=== PATIENT | female | born 1985 | race Caucasian/White ===

== ENCOUNTER 2023-04-13 14:03 | Inpatient (IN) | payer OTHER, SELFPAY ==
[2023-04-13 14:13] VITALS: BP 120/64; BMI 29.9
[2023-04-13] MEDS: LR 1000 IV (14:20)
[2023-04-13 14:55] LABS: Hematocrit 31.2 % (37.0-47.0); Hemoglobin 10.6 g/dL (12.0-16.0); Mean Corpuscular Hgb 30.3 pg (27.0-31.0); Mean Corpuscular Volume 89.1 fL (81.0-99.0); Mean Platelet Volume 11.2 fL (7.4-10.4); Platelet Count 190 10^3/uL (130-400); Red Cell Dist. Width 13.3 % (11.5-14.5)
[2023-04-13] MEDS: TYLENOL 1000 MG PO (14:59)
[2023-04-13] MEDS: BICITRA 30 ML PO (15:01)
[2023-04-13] MEDS: ANCEF 10 IV (15:04)
[2023-04-13] MEDS: MORPHINE SULFATE 4 MG IV (18:15)
[2023-04-13] MEDS: ZOFRAN 4 MG IV (21:38)
[2023-04-13] MEDS: TORADOL 15 MG IV (21:38)
[2023-04-14] MEDS: TORADOL 15 MG IV ×3 (04:02→15:45)
[2023-04-14 05:06] LABS: Hematocrit 26.3 % (37.0-47.0); Hemoglobin 8.8 g/dL (12.0-16.0); Mean Corp Hgb Conc. 33.5 g/dL (33.0-37.0); Mean Corpuscular Hgb 30.6 pg (27.0-31.0); Mean Corpuscular Volume 91.3 fL (81.0-99.0); Mean Platelet Volume 11.6 fL (7.4-10.4); Platelet Count 165 10^3/uL (130-400); Red Blood Cell Count 2.88 10^6/uL (4.20-5.40); Red Cell Dist. Width 13.3 % (11.5-14.5); White Blood Cell Count 15.7 10^3/uL (4.8-10.8)
[2023-04-14] MEDS: BENADRYL 25 MG PO (05:48)
--- NOTE | 2023-04-14 07:40 | W.PN.ANS.POP ---
Anesthesia Post Operative
- Anesthesia Post Op Note
Vital Signs Stable-See Nursing Note: Yes
Airway Patent: Yes
Adequate Pain Control: Yes
Change in Mental Status: No
Current Postoperative Nausea & Vomiting: No
Anesthesia Complications: No (no back pain or headache)
General Anesthetic Recall: No
Unplanned Admission: No
Post Op Hydration Adequate: Yes
[2023-04-14] MEDS: FEOSOL 325 MG PO ×2 (08:28→20:26)
[2023-04-14] MEDS: TYLENOL 650 MG PO (22:27)
[2023-04-14] MEDS: MOTRIN 600 MG PO (22:27)
[2023-04-15] MEDS: TYLENOL 650 MG PO (05:36)
[2023-04-15] MEDS: MOTRIN 600 MG PO (05:37)
--- NOTE | 2023-04-15 08:21 | W.DS.TRANS ---
DC Summary - Medication Technician
-
Discharge Instructions:
Discharge Diagnosis/Procedures section
Instructions:
Stand-Alone Forms: LDRP Delivery
Changes to Home Medications: No
Discharge Medications:
DC Medications w/original date entered in [employer]
vitamin-ferrous fumarate 28 mg iron-folic acid 800 mcg tablet ( Tablet) 1 tab PO DAILY Supplement 04/13/23
acetaminophen 325 mg tablet 650 mg PO Q4HPRN PRN mild pain #0 tabs 04/15/23
ferrous sulfate 325 mg (65 mg iron) tablet (FeroSul) 325 mg PO DAILY #0 tabs 04/15/23
ibuprofen 600 mg tablet 600 mg PO Q6HPRN PRN cramps #45 tabs 04/15/23
sennosides 8.6 mg-docusate sodium 50 mg tablet (Stool Softener-Stimulant Laxative) 1 tab PO DAILYPRN PRN constipation #0 tabs 04/15/23
Home Medication Changes
Pending Results: No
[2023-04-15] MEDS: FEOSOL 325 MG PO (08:26)
[2023-04-15] MEDS: SENOKOT-S 1 TABLET PO (08:27)
[2023-04-18 16:20] LABS: Syphilis/T. pallidum Ab Reflex Negative (Negative)
== END 2023-04-15 12:00 | disposition home or self-care (01) | DRG 785 ==
LOC: LDRP 14:03
PROVIDERS: ADMITTING PHYSICIAN Obstetrics & Gynecology
PROC: 0HB7XZZ Excision of Abdomen Skin, External Approach (ICD-10-PCS; 2023-04-13)
PROC: 10D00Z1 Extraction of Products of Conception, Low, Open Approach (ICD-10-PCS; 2023-04-13)
PROC: 0UT70ZZ Resection of Bilateral Fallopian Tubes, Open Approach (ICD-10-PCS; 2023-04-13)
PROC: 6A550ZT Pheresis of Cord Blood Stem Cells, Single (ICD-10-PCS; 2023-04-13)
DX: O34.211 Maternal care for low transverse scar from previous cesarean delivery (principal); N85.8 Other specified noninflammatory disorders of uterus; Z3A.39 39 weeks gestation of pregnancy; Z37.0 Single live birth; L91.0 Hypertrophic scar; O99.72 Diseases of the skin and subcutaneous tissue complicating childbirth; O99.344 Other mental disorders complicating childbirth; F41.9 Anxiety disorder, unspecified; O32.1XX0 Maternal care for breech presentation, not applicable or unspecified; O99.284 Endocrine, nutritional and metabolic diseases complicating childbirth; E28.2 Polycystic ovarian syndrome; Z86.16 Personal history of COVID-19; Z85.820 Personal history of malignant melanoma of skin; Z30.2 Encounter for sterilization; Z83.3 Family history of diabetes mellitus; Z82.3 Family history of stroke; Z80.0 Family history of malignant neoplasm of digestive organs
CPT/HCPCS: 88302; 88307; 36415; 58605; 85027; 86780; 86850; 86900; 86901